=== PATIENT | male | born 1950 | race Caucasian/White ===

== ENCOUNTER 2020-03-18 09:16 | Inpatient (IN) | payer MEDICARE, OTHER ==
[~2020-03-18] VITALS: Ht 177.8 cm; Wt 74.0 kg
[2020-03-18 09:28] VITALS: BP 129/77
[2020-03-18 10:05] LABS: BASO % 0.2 % (0.0-1.0); EOS # 0.2 10*3/uL (0.0-0.4); EOS % 1.2 % (1.0-4.0); HEMATOCRIT 44.6 % (42.0-52.0); LYMPH # 1.1 10*3/uL (1.3-4.4); LYMPH % 7.7 % (27.0-41.0); MEAN CELL VOLUME 94.3 fl (80.0-94.0); MEAN CORPUSCULAR HGB 31.7 pg (27.0-31.0); MEAN CORPUSCULAR HGB CONC 33.6 g/dl (33.0-37.0); MEAN PLATELET VOLUME 9.3 fl (9.6-12.3); MONO # 1.2 10*3/uL (0.1-1.0); MONO % 8.6 % (3.0-9.0); NEUT # 11.7 10*3/uL (2.3-7.9); NEUT % 81.9 % (47.0-73.0); PLATELET COUNT AUTOMATED 213 10*3/uL (130-400); RED BLOOD COUNT 4.73 10*6/uL (4.50-5.90); RED CELL DISTRI WIDTH 13.2 % (0-14.5); WHITE BLOOD COUNT 14.2 10*3/uL (4.8-10.8)
[2020-03-18 10:21] LABS: ALBUMIN 2.6 gm/dl (3.1-4.5); ALKALINE PHOSPHATASE 111 U/L (45-117); BUN 12 mg/dl (7-24); CHLORIDE 104 mmol/L (98-107); CREATININE 0.91 mg/dL (0.70-1.30); POTASSIUM 3.8 mmol/L (3.5-5.1); SGOT/AST 33 IU/L (3-35); SGPT/ALT 40 U/L (12-78); SODIUM 136 mmol/L (136-145); TOTAL PROTEIN 7.4 gm/dL (6.4-8.2)
--- NOTE | 2020-03-18 11:11 | NUR ---
PT UNABLE TO OBTAIN URINE SAMPLE AT THIS TIME. WILL CONTINUE TO MONITOR.
[2020-03-18 12:09] LABS: BILIRUBIN 1+ (Negative); BLOOD Negative (Negative); CLARITY Clear (Clear); COLOR Dark Yellow (Yellow); GLUCOSE Negative (Negative); KETONE Trace (Negative); LEUKO ESTERASE Trace (Negative); NITRITE Negative (Negative); SPECIFIC GRAVITY 1.025 (1.001-1.030)
[2020-03-18 12:32] LABS: BACTERIA 1+; MUCOUS 2+
[2020-03-18 13:09] VITALS: BP 108/64
--- NOTE | 2020-03-18 13:10 | NUR ---
PT DENIES WOUNDS AT THIS TIME.
[2020-03-18 13:25] VITALS: BP 120/62
--- NOTE | 2020-03-18 13:25 | NUR ---
A 69, admitted to , under the services of FREDIS Lubin DO with a diagnosis of PNEUMONIA. Chief complaint is "FLULIKE SYMPTOMS". Patient arrived via stretcher from ER. Monitor applied. Initial assessment completed. Vital signs taken and recorded. FREDIS LUBIN DO notified of admission to the unit. Orders received. See assessment for past medical history, medications and allergies. Patient and/or family oriented to unit. [address] visitation policy reviewed. Clothing/patient valuable form completed. MICAH COLLADO
[2020-03-18] MEDS ORDERED: ASPIRIN ADULT L81 M1 PO (15:08)
[2020-03-18 15:45] LABS: ABG BASE EXCESS -0.2 mmol/L (-2.0-2.0); ARTERIAL BLOOD GAS PH 7.472 (7.35-7.45)
[2020-03-18] MEDS ORDERED: LIPITOR40 MG PO (15:56)
[2020-03-18] MEDS ORDERED: MIDODRINE HCL5 M1 PO (15:56)
[2020-03-18] MEDS ORDERED: FAMOTIDINE40 MG PO (15:57)
[2020-03-18] MEDS ORDERED: ONE DAILY MEN'1 EACH PO (15:58)
[2020-03-18 16:00] VITALS: BP 110/72
--- NOTE | 2020-03-18 16:24 | NUR ---
Nursing screen received. 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 Patient admitted with pneumonia and suspected covid-19 with test results pending. If patient should have a significant decline in ADLs then refer to OT. Thank you. Medina Jeronimo OTR/L
[2020-03-18 20:00] VITALS: BP 110/60
[2020-03-19] VITALS: BP 94/62
[2020-03-19 06:24] LABS: BASO % 0.3 % (0.0-1.0); EOS # 0.4 10*3/uL (0.0-0.4); EOS % 3.7 % (1.0-4.0); HEMATOCRIT 42.1 % (42.0-52.0); LYMPH # 1.4 10*3/uL (1.3-4.4); LYMPH % 14.6 % (27.0-41.0); MEAN CELL VOLUME 93.8 fl (80.0-94.0); MEAN CORPUSCULAR HGB 31.8 pg (27.0-31.0); MEAN PLATELET VOLUME 9.9 fl (9.6-12.3); MONO # 0.9 10*3/uL (0.1-1.0); MONO % 8.9 % (3.0-9.0); NEUT # 7.1 10*3/uL (2.3-7.9); NEUT % 72.2 % (47.0-73.0); PLATELET COUNT AUTOMATED 211 10*3/uL (130-400); RED BLOOD COUNT 4.49 10*6/uL (4.50-5.90); RED CELL DISTRI WIDTH 13.2 % (0-14.5); WHITE BLOOD COUNT 9.8 10*3/uL (4.8-10.8)
[2020-03-19 06:41] LABS: ACT PARTIAL THROMBO TIME 27.6 SECONDS (20.0-32.1)
[2020-03-19 06:42] LABS: ALBUMIN 2.1 gm/dl (3.1-4.5); ALKALINE PHOSPHATASE 107 U/L (45-117); BUN 10 mg/dl (7-24); CHLORIDE 106 mmol/L (98-107); CHOLESTEROL 99 mg/dL (<200); CPK 101 U/L (39-308); CREATININE 0.73 mg/dL (0.70-1.30); FREE T4 1.21 ng/dl (0.76-1.46); HDL CHOLESTEROL 39 mg/dl (40-60); LDH 170 U/L (87-241); LDL CHOLESTEROL 47 mg/dL (9-159); POTASSIUM 3.8 mmol/L (3.5-5.1); SGOT/AST 52 IU/L (3-35); SGPT/ALT 53 U/L (12-78); SODIUM 138 mmol/L (136-145); TOTAL PROTEIN 6.7 gm/dL (6.4-8.2); TRIGLYCERIDES 64 mg/dl (<150); VLDL CHOLESTEROL 13 mg/dL (6-40)
[2020-03-19 08:13] LABS: VITAMIN D, 25-HYDROXY 32.3 ng/mL (30-100)
[2020-03-19 08:55] VITALS: BP 100/68
--- NOTE | 2020-03-19 10:28 | NUR ---
ME[employer]-S in to talk to patient. Patient states lives at home with and stepson. There are 0 steps in the home. 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 Pt states that he is relying on his other stepson to be the caregiver while pt is in [place]. Anticipate that pt will not have any discharge needs. NORA HERRERA
[2020-03-19] MEDS ORDERED: ENBREL MIN50 MG/1 M1 SQ (11:10)
--- NOTE | 2020-03-19 11:12 | NUR ---
Family brought in pt clothes and enbrel. He takes once weekly. Notified Dr. Marinelli. PT usually takes on saturday but missed it yesterday. Wanting to take today.
[2020-03-19 12:00] VITALS: BP 99/60
--- NOTE | 2020-03-19 14:17 | NUR ---
Pt updated on plan of care.
[2020-03-19 16:00] VITALS: BP 99/60
[2020-03-19 20:00] VITALS: BP 106/63
[2020-03-19 23:44] VITALS: BP 105/71
[2020-03-20 06:31] LABS: BASO % 0.5 % (0.0-1.0); EOS # 0.5 10*3/uL (0.0-0.4); EOS % 5.2 % (1.0-4.0); HEMATOCRIT 41.8 % (42.0-52.0); LYMPH # 1.5 10*3/uL (1.3-4.4); LYMPH % 17.3 % (27.0-41.0); MEAN CELL VOLUME 92.9 fl (80.0-94.0); MEAN CORPUSCULAR HGB 31.8 pg (27.0-31.0); MEAN CORPUSCULAR HGB CONC 34.2 g/dl (33.0-37.0); MONO # 0.9 10*3/uL (0.1-1.0); MONO % 9.9 % (3.0-9.0); NEUT # 5.9 10*3/uL (2.3-7.9); NEUT % 66.9 % (47.0-73.0); PLATELET COUNT AUTOMATED 215 10*3/uL (130-400); RED CELL DISTRI WIDTH 13.1 % (0-14.5); WHITE BLOOD COUNT 8.8 10*3/uL (4.8-10.8)
[2020-03-20 07:01] LABS: ALBUMIN 2.2 gm/dl (3.1-4.5); BUN 8 mg/dl (7-24); CHLORIDE 105 mmol/L (98-107); CREATININE 0.67 mg/dL (0.70-1.30); POTASSIUM 3.8 mmol/L (3.5-5.1); SGPT/ALT 90 U/L (12-78); SODIUM 138 mmol/L (136-145)
[2020-03-20 07:06] LABS: ALKALINE PHOSPHATASE 111 U/L (45-117); LDH 194 U/L (87-241); SGOT/AST 80 IU/L (3-35); TOTAL PROTEIN 6.6 gm/dL (6.4-8.2)
[2020-03-20 07:09] LABS: CPK 54 U/L (39-308)
--- NOTE | 2020-03-20 08:00 | NUR ---
PATIENT RESTING IN BED. VOICES NO NEEDS OR CONCERS. ASSESSMENT COMPLETE. RESPS EASY AND REGULAR ON ROOM AIR. CALL LIGHT IN REACH.
[2020-03-20 12:00] VITALS: BP 110/63
--- NOTE | 2020-03-20 15:29 | NUR ---
PATIENT RESTING IN BED WITH NO COMPLAINTS. CALL LIGHT IN REACH.
--- NOTE | 2020-03-20 15:29 | NUR ---
24 HR chart check completed.
[2020-03-20 16:00] VITALS: BP 114/65
[2020-03-20 20:00] VITALS: BP 109/64
[2020-03-21] VITALS: BP 99/59
--- NOTE | 2020-03-21 03:57 | NUR ---
Patient resting quietly with no c/o discomfort. Respirations easy and regular. Vital signs stable. No overt distress. FARZANA BINGHAM
[2020-03-21 06:35] LABS: BASO # 0.1 10*3/uL (0.0-0.1); BASO % 0.5 % (0.0-1.0); EOS # 0.5 10*3/uL (0.0-0.4); EOS % 5.1 % (1.0-4.0); HEMATOCRIT 42.7 % (42.0-52.0); LYMPH # 1.7 10*3/uL (1.3-4.4); LYMPH % 17.2 % (27.0-41.0); MEAN CELL VOLUME 93.8 fl (80.0-94.0); MEAN CORPUSCULAR HGB 32.1 pg (27.0-31.0); MEAN CORPUSCULAR HGB CONC 34.2 g/dl (33.0-37.0); MEAN PLATELET VOLUME 9.2 fl (9.6-12.3); MONO # 0.9 10*3/uL (0.1-1.0); MONO % 9.5 % (3.0-9.0); NEUT # 6.5 10*3/uL (2.3-7.9); NEUT % 67.4 % (47.0-73.0); PLATELET COUNT AUTOMATED 242 10*3/uL (130-400); RED BLOOD COUNT 4.55 10*6/uL (4.50-5.90); RED CELL DISTRI WIDTH 13.2 % (0-14.5); WHITE BLOOD COUNT 9.6 10*3/uL (4.8-10.8)
[2020-03-21 07:05] LABS: ALBUMIN 2.3 gm/dl (3.1-4.5); ALKALINE PHOSPHATASE 113 U/L (45-117); BUN 10 mg/dl (7-24); CHLORIDE 105 mmol/L (98-107); CPK 44 U/L (39-308); CREATININE 0.75 mg/dL (0.70-1.30); LDH 176 U/L (87-241); POTASSIUM 4.2 mmol/L (3.5-5.1); SGOT/AST 59 IU/L (3-35); SGPT/ALT 91 U/L (12-78); SODIUM 138 mmol/L (136-145); TOTAL PROTEIN 6.9 gm/dL (6.4-8.2)
--- NOTE | 2020-03-21 07:30 | NUR ---
PATIENT RESTING IN BED. VOICES NO CONCERS. ASSESSMENT COMPLETE. RESPS ERND ON ROOM AIR. CALL LIGHT IN REACH.
[2020-03-21 08:00] VITALS: BP 107/69
--- NOTE | 2020-03-21 08:10 | NUR ---
PHYSICAL THERAPY Screen received pt admitted with pneumonia and ruling out COVID. Please consult PT if pt has a decline in functional status below baseline, thank you. Marlee Mart PT
--- NOTE | 2020-03-21 09:00 | NUR ---
case management visits with patient, he states he will return home when discharged. denies any home needs, case management will follow
[2020-03-21 12:00] VITALS: BP 109/73
[2020-03-21] MEDS ORDERED: MUCINEX1200 M1 PO (12:22)
[2020-03-21] MEDS ORDERED: ZITHROMAX250 MG PO (12:22)
--- NOTE | 2020-03-21 13:12 | NUR ---
Discharge instructions reviewed with patient/family. Patient receptive and verbalizes understanding. Follow-up care arranged. Written instructions given to patient/family. HEART MONITOR AND IV REMOVED. MICAH COLLADO
== END 2020-03-21 13:12 | disposition home or self-care (01) | DRG 871 ==
LOC: ED 09:16 → 4E 11:37 → EDHOLD 11:37 → 4E 12:29
PROVIDERS: Emergency Medicine; Family Medicine; Hospitalist; ADMIT Emergency Medicine; ATTEND Emergency Medicine
DX: A41.9 Sepsis, unspecified organism (principal); J18.9 Pneumonia, unspecified organism; E43 Unspecified severe protein-calorie malnutrition; J84.10 Pulmonary fibrosis, unspecified; I95.9 Hypotension, unspecified; M06.9 Rheumatoid arthritis, unspecified; E78.5 Hyperlipidemia, unspecified; F32.9 Major depressive disorder, single episode, unspecified; K40.90 Unilateral inguinal hernia, without obstruction or gangrene, not specified as recurrent; Z20.828 Contact with and (suspected) exposure to other viral communicable diseases; Z90.49 Acquired absence of other specified parts of digestive tract; Z87.891 Personal history of nicotine dependence; Z68.23 Body mass index [BMI] 23.0-23.9, adult

== ENCOUNTER → 2020-07-05 | Outpatient (CLI) | payer MEDICARE, OTHER ==
[~2020-07-05] MED LIST: ASPIRIN ADULT L81 M1 PO; ENBREL MIN50 MG/1 M1 SQ; FAMOTIDINE40 MG PO; LIPITOR40 MG PO; MIDODRINE HCL5 M1 PO; MUCINEX1200 M1 PO; ONE DAILY MEN'1 EACH PO; ZITHROMAX250 MG PO
== END | disposition home or self-care (01) ==
LOC: COVID19 15:22
PROVIDERS: ATTEND Family Medicine
DX: Z20.822 Contact with and (suspected) exposure to COVID-19 (principal)

== ENCOUNTER 2021-10-25 17:54 | Inpatient (IN) | payer MEDICARE, OTHER ==
[~2021-10-25] VITALS: Ht 165.1 cm; Wt 68.9 kg
[2021-10-25 18:08] VITALS: BP 102/61
[2021-10-25 18:21] LABS: BASO % 0.3 % (0.0-1.0); EOS # 0.1 10*3/uL (0.0-0.4); HEMATOCRIT 24.7 % (42.0-52.0); LYMPH # 1.2 10*3/uL (1.3-4.4); LYMPH % 10.1 % (27.0-41.0); MEAN CELL VOLUME 90.8 fl (80.0-94.0); MEAN CORPUSCULAR HGB 29.4 pg (27.0-31.0); MEAN CORPUSCULAR HGB CONC 32.4 g/dl (33.0-37.0); MEAN PLATELET VOLUME 8.7 fl (9.6-12.3); MONO # 1.3 10*3/uL (0.1-1.0); MONO % 11.2 % (3.0-9.0); NEUT # 8.9 10*3/uL (2.3-7.9); NEUT % 74.9 % (47.0-73.0); PLATELET COUNT AUTOMATED 369 10*3/uL (130-400); RED BLOOD COUNT 2.72 10*6/uL (4.50-5.90); RED CELL DISTRI WIDTH 20.2 % (0-14.5); WHITE BLOOD COUNT 11.8 10*3/uL (4.8-10.8)
[2021-10-25] MEDS ORDERED: COLACE100 MG PO (18:24)
[2021-10-25] MEDS ORDERED: CYMBALTA60 MG PO (18:25)
[2021-10-25] MEDS ORDERED: CARDIZEM30 MG PO (18:26)
[2021-10-25] MEDS ORDERED: TRELEGY ELLIPT1 EACH INH (18:30)
[2021-10-25] MEDS ORDERED: MUCUS ER1200 MG PO (18:31)
[2021-10-25] MEDS ORDERED: MELATONIN10 M2 PO (18:32)
[2021-10-25 18:33] LABS: ACT PARTIAL THROMBO TIME 26.5 SECONDS (20.0-32.1); INTERNATIONAL NORM RATIO 1.1 (2.0-3.5)
[2021-10-25] MEDS ORDERED: PANTOPRAZOLE SO40 MG PO (18:34)
[2021-10-25] MEDS ORDERED: PHAZYME180 MG PO (18:35)
[2021-10-25] MEDS ORDERED: FLOMAX0.4 MG PO (18:36)
[2021-10-25] MEDS ORDERED: TRAMADOL HCL50 MG PO (18:37)
[2021-10-25 18:38] LABS: ALKALINE PHOSPHATASE 106 U/L (45-117); BUN 8 mg/dl (7-24); CHLORIDE 99 mmol/L (98-107); CREATININE 0.53 mg/dL (0.70-1.30); POTASSIUM 3.8 mmol/L (3.5-5.1); SGOT/AST 58 IU/L (3-35); SGPT/ALT 70 U/L (12-78); SODIUM 135 mmol/L (136-145); TOTAL PROTEIN 5.8 gm/dL (6.4-8.2)
[2021-10-25] MEDS ORDERED: XARELTO20 M1 PO (18:38)
[2021-10-25] MEDS ORDERED: XOPENEX1.25 MG/3 INH (18:39)
[2021-10-25 18:40] LABS: ABG BASE EXCESS 4.1 mmol/L (-2.0-2.0); ARTERIAL BLOOD GAS PH 7.474 (7.35-7.45); ARTERIAL BLOOD GAS PO2 89.8 (80-90)
[2021-10-25 19:25] VITALS: BP 98/64
[2021-10-25 20:45] VITALS: BP 102/70
[2021-10-25 22:10] VITALS: BP 96/60
[2021-10-26 01:15] VITALS: BP 114/63
[2021-10-26] MEDS ORDERED: TYLENOL325 M1 PO (01:47)
[2021-10-26] MEDS ORDERED: XANAX0.5 MG PO (01:48)
[2021-10-26] MEDS ORDERED: BISACODYL10 MG R (01:50)
[2021-10-26] MEDS ORDERED: FLEET MINERAL133 ML PO (01:52)
[2021-10-26] MEDS ORDERED: MILK OF MA400 MG/5 M PO (01:54)
[2021-10-26 05:00] VITALS: BP 92/52
[2021-10-26 05:36] LABS: ALKALINE PHOSPHATASE 94 U/L (45-117); BUN 8 mg/dl (7-24); CHLORIDE 100 mmol/L (98-107); CHOLESTEROL 79 mg/dL (<200); CREATININE 0.43 mg/dL (0.70-1.30); FREE T4 1.26 ng/dl (0.76-1.46); LDL CHOLESTEROL 29 mg/dL (9-159); POTASSIUM 3.8 mmol/L (3.5-5.1); SGOT/AST 41 IU/L (3-35); SGPT/ALT 61 U/L (12-78); SODIUM 135 mmol/L (136-145); TOTAL PROTEIN 5.4 gm/dL (6.4-8.2); TRIGLYCERIDES 50 mg/dl (<150)
[2021-10-26 05:41] LABS: THYROID STIM HORMONE (HS) 0.804 uIU/ml (0.358-4.75)
[2021-10-26 06:17] LABS: BASO % 0.3 % (0.0-1.0); EOS # 0.2 10*3/uL (0.0-0.4); EOS % 1.3 % (1.0-4.0); HEMATOCRIT 23.7 % (42.0-52.0); LYMPH # 0.9 10*3/uL (1.3-4.4); LYMPH % 7.5 % (27.0-41.0); MEAN CELL VOLUME 92.9 fl (80.0-94.0); MEAN CORPUSCULAR HGB 29.4 pg (27.0-31.0); MEAN CORPUSCULAR HGB CONC 31.6 g/dl (33.0-37.0); MEAN PLATELET VOLUME 9.3 fl (9.6-12.3); MONO # 1.4 10*3/uL (0.1-1.0); MONO % 11.8 % (3.0-9.0); NEUT # 9.4 10*3/uL (2.3-7.9); NEUT % 77.1 % (47.0-73.0); PLATELET COUNT AUTOMATED 406 10*3/uL (130-400); RED BLOOD COUNT 2.55 10*6/uL (4.50-5.90); RED CELL DISTRI WIDTH 20.1 % (0-14.5); WHITE BLOOD COUNT 12.2 10*3/uL (4.8-10.8)
[2021-10-26 08:00] VITALS: BP 92/61
[2021-10-26 12:00] VITALS: BP 92/61
[2021-10-26 16:00] VITALS: BP 95/59
[2021-10-26 20:00] VITALS: BP 105/56
[2021-10-27] VITALS: BP 102/59
[2021-10-27 06:01] LABS: BUN 6 mg/dl (7-24); CHLORIDE 102 mmol/L (98-107); CREATININE 0.24 mg/dL (0.70-1.30); POTASSIUM 3.4 mmol/L (3.5-5.1); SODIUM 134 mmol/L (136-145)
[2021-10-27 06:02] LABS: HEMATOCRIT 23.7 % (42.0-52.0); MEAN CELL VOLUME 91.9 fl (80.0-94.0); MEAN CORPUSCULAR HGB 29.1 pg (27.0-31.0); MEAN CORPUSCULAR HGB CONC 31.6 g/dl (33.0-37.0); MEAN PLATELET VOLUME 9.2 fl (9.6-12.3); PLATELET COUNT AUTOMATED 416 10*3/uL (130-400); RED BLOOD COUNT 2.58 10*6/uL (4.50-5.90); WHITE BLOOD COUNT 13.7 10*3/uL (4.8-10.8)
[2021-10-27 06:16] LABS: MANUAL DIFF REFLEX YES
[2021-10-27 07:06] LABS: BURR CELLS FEW; PLATELET SUFFICIENCY HIGH (NORMAL); POLYCHROMASIA SLIGHT; TOTAL CELLS COUNTED 100 #CELLS
[2021-10-27 08:00] VITALS: BP 102/70
[2021-10-27 12:00] VITALS: BP 96/56
[2021-10-27 16:00] VITALS: BP 92/64
[2021-10-27 20:00] VITALS: BP 106/63
[2021-10-28] VITALS: BP 92/57
[2021-10-28 05:58] LABS: BUN 5 mg/dl (7-24); CHLORIDE 102 mmol/L (98-107); CREATININE 0.37 mg/dL (0.70-1.30); POTASSIUM 3.5 mmol/L (3.5-5.1); SODIUM 136 mmol/L (136-145)
[2021-10-28 06:16] LABS: BASO # 0.1 10*3/uL (0.0-0.1); BASO % 0.6 % (0.0-1.0); EOS # 0.6 10*3/uL (0.0-0.4); HEMATOCRIT 23.5 % (42.0-52.0); LYMPH # 1.1 10*3/uL (1.3-4.4); LYMPH % 9.2 % (27.0-41.0); MEAN CELL VOLUME 91.8 fl (80.0-94.0); MEAN CORPUSCULAR HGB 28.9 pg (27.0-31.0); MEAN CORPUSCULAR HGB CONC 31.5 g/dl (33.0-37.0); MEAN PLATELET VOLUME 9.2 fl (9.6-12.3); MONO # 1.2 10*3/uL (0.1-1.0); MONO % 9.5 % (3.0-9.0); NEUT # 9.1 10*3/uL (2.3-7.9); NEUT % 74.2 % (47.0-73.0); PLATELET COUNT AUTOMATED 442 10*3/uL (130-400); RED BLOOD COUNT 2.56 10*6/uL (4.50-5.90); RED CELL DISTRI WIDTH 19.9 % (0-14.5); WHITE BLOOD COUNT 12.3 10*3/uL (4.8-10.8)
[2021-10-28 08:00] VITALS: BP 103/63
[2021-10-28 12:00] VITALS: BP 102/63
[2021-10-28 16:00] VITALS: BP 95/57
[2021-10-28 20:00] VITALS: BP 104/62
[2021-10-29] VITALS: BP 107/68
[2021-10-29 06:27] LABS: BUN 7 mg/dl (7-24); CHLORIDE 101 mmol/L (98-107); CREATININE 0.38 mg/dL (0.70-1.30); POTASSIUM 3.4 mmol/L (3.5-5.1); SODIUM 136 mmol/L (136-145)
[2021-10-29 06:47] LABS: BASO # 0.1 10*3/uL (0.0-0.1); BASO % 0.5 % (0.0-1.0); EOS # 0.4 10*3/uL (0.0-0.4); EOS % 3.2 % (1.0-4.0); HEMATOCRIT 24.9 % (42.0-52.0); LYMPH % 7.7 % (27.0-41.0); MEAN CELL VOLUME 92.2 fl (80.0-94.0); MEAN CORPUSCULAR HGB 28.5 pg (27.0-31.0); MEAN CORPUSCULAR HGB CONC 30.9 g/dl (33.0-37.0); MEAN PLATELET VOLUME 9.3 fl (9.6-12.3); MONO % 8.1 % (3.0-9.0); NEUT # 10.2 10*3/uL (2.3-7.9); NEUT % 78.8 % (47.0-73.0); PLATELET COUNT AUTOMATED 485 10*3/uL (130-400); WHITE BLOOD COUNT 12.9 10*3/uL (4.8-10.8)
[2021-10-29 08:00] VITALS: BP 98/60
[2021-10-29 12:00] VITALS: BP 94/53
[2021-10-29 16:00] VITALS: BP 103/60
[2021-10-29 20:00] VITALS: BP 104/61
[2021-10-30] VITALS: BP 106/70
[2021-10-30 06:08] LABS: BUN 7 mg/dl (7-24); CHLORIDE 102 mmol/L (98-107); CREATININE 0.31 mg/dL (0.70-1.30); POTASSIUM 3.4 mmol/L (3.5-5.1); SODIUM 136 mmol/L (136-145)
[2021-10-30 06:32] LABS: BASO # 0.1 10*3/uL (0.0-0.1); BASO % 0.4 % (0.0-1.0); EOS # 0.8 10*3/uL (0.0-0.4); EOS % 5.8 % (1.0-4.0); HEMATOCRIT 23.3 % (42.0-52.0); LYMPH # 1.1 10*3/uL (1.3-4.4); LYMPH % 8.5 % (27.0-41.0); MEAN CELL VOLUME 92.8 fl (80.0-94.0); MEAN CORPUSCULAR HGB 28.7 pg (27.0-31.0); MEAN CORPUSCULAR HGB CONC 30.9 g/dl (33.0-37.0); MONO # 1.1 10*3/uL (0.1-1.0); MONO % 8.4 % (3.0-9.0); NEUT # 9.8 10*3/uL (2.3-7.9); NEUT % 74.9 % (47.0-73.0); PLATELET COUNT AUTOMATED 459 10*3/uL (130-400); RED BLOOD COUNT 2.51 10*6/uL (4.50-5.90); RED CELL DISTRI WIDTH 19.9 % (0-14.5)
[2021-10-30 08:00] VITALS: BP 93/54
[2021-10-30 12:00] VITALS: BP 104/59
[2021-10-30 16:00] VITALS: BP 100/61
[2021-10-30 20:00] VITALS: BP 102/62
[2021-10-31] VITALS: BP 98/55
[2021-10-31 08:00] VITALS: BP 90/62
[2021-10-31 12:00] VITALS: BP 98/55
[2021-10-31 16:00] VITALS: BP 96/57
[2021-10-31 20:00] VITALS: BP 100/62
== END 2021-10-31 21:03 | disposition hospice, inpatient (51) | DRG 871 ==
LOC: ED 17:54 → 4E 23:27 → EDHOLD 23:27 → 4E 10-26 00:32
PROVIDERS: Emergency Medicine; Internal Medicine; Student in an Organized Health Care Education/Training Program; ADMIT Internal Medicine; ATTEND Internal Medicine
PROC: 5A0935A Assistance with Respiratory Ventilation, Less than 24 Consecutive Hours, High Flow/Velocity Cannula (ICD-10-PCS; principal; 2021-10-25)
DX: A41.9 Sepsis, unspecified organism (principal); J96.01 Acute respiratory failure with hypoxia; J18.9 Pneumonia, unspecified organism; E43 Unspecified severe protein-calorie malnutrition; C34.90 Malignant neoplasm of unspecified part of unspecified bronchus or lung; E87.3 Alkalosis; E87.1 Hypo-osmolality and hyponatremia; J44.0 Chronic obstructive pulmonary disease with (acute) lower respiratory infection; I48.92 Unspecified atrial flutter; C78.00 Secondary malignant neoplasm of unspecified lung; Z51.5 Encounter for palliative care; Z66 Do not resuscitate; I48.91 Unspecified atrial fibrillation; Z20.822 Contact with and (suspected) exposure to COVID-19; D64.9 Anemia, unspecified; E83.51 Hypocalcemia; R73.9 Hyperglycemia, unspecified; E78.5 Hyperlipidemia, unspecified; R65.20 Severe sepsis without septic shock; R91.8 Other nonspecific abnormal finding of lung field; Z79.82 Long term (current) use of aspirin; Z79.1 Long term (current) use of non-steroidal anti-inflammatories (NSAID); Z79.899 Other long term (current) drug therapy; Z90.49 Acquired absence of other specified parts of digestive tract; Z87.891 Personal history of nicotine dependence

== ENCOUNTER 2021-10-31 21:07 | Inpatient (IN) | payer OTHER, MEDICARE ==
[~2021-10-31] VITALS: Ht 165.1 cm; Wt 68.9 kg
[~2021-10-31 21:07] MED LIST changes: +BISACODYL10 MG R; +CARDIZEM30 MG PO; +COLACE100 MG PO; +CYMBALTA60 MG PO; +FLEET MINERAL133 ML PO; +FLOMAX0.4 MG PO; +MELATONIN10 M2 PO; +MILK OF MA400 MG/5 M PO; +MUCUS ER1200 MG PO; +PANTOPRAZOLE SO40 MG PO; +PHAZYME180 MG PO; +TRAMADOL HCL50 MG PO; +TRELEGY ELLIPT1 EACH INH; +TYLENOL325 M1 PO; +XANAX0.5 MG PO; +XARELTO20 M1 PO; +XOPENEX1.25 MG/3 INH
[2021-10-31 21:34] VITALS: BP 100/62
[2021-11-01] VITALS: BP 98/60
[2021-11-01 08:00] VITALS: BP 89/54
[2021-11-01 12:00] VITALS: BP 96/59
[2021-11-01 16:00] VITALS: BP 105/65
[2021-11-01 20:00] VITALS: BP 92/59
[2021-11-02] VITALS: BP 91/59
== END 2021-11-02 07:57 | DRG 871 ==
LOC: 4E 21:07
PROVIDERS: ADMIT Internal Medicine; ATTEND Internal Medicine
DX: A41.9 Sepsis, unspecified organism (principal); E43 Unspecified severe protein-calorie malnutrition; J96.01 Acute respiratory failure with hypoxia; J18.9 Pneumonia, unspecified organism; Z51.5 Encounter for palliative care; C78.01 Secondary malignant neoplasm of right lung; E87.3 Alkalosis; E87.1 Hypo-osmolality and hyponatremia; D64.9 Anemia, unspecified; E83.51 Hypocalcemia; R73.9 Hyperglycemia, unspecified; R91.8 Other nonspecific abnormal finding of lung field